=== PATIENT | male | born 1945 | race Caucasian/White ===

== ENCOUNTER → 2017-04-19 | Day surgery (SDC) | payer MEDICARE, OTHER ==
[~2017-04-19] MED LIST: ASPIRIN PO; CRESTOR PO; HYDROCODON-ACE1 EAC1; LOPRESSOR PO; MAGNESIUM400 MG PO; NORVASC PO; OXYGEN INH; PRILOSEC PO; SPIRIVA18 MCG INH; SYMBICORT INH; TOPROL XL PO
--- NOTE | ~2017-04-19 | OR ---
Unit #: [id number] #: [id number] Patient: POPEYE TIRADO [id number] [place], [place] [address] [id number] MR#: [id number] NAME: POPEYE TIRADO ROOM: Date of Procedure: 04/19/2017 Admission Date: 04/19/2017 Surgeon: Bijan Mulligan M.D. : 1945 Attending Physician: Bijan Mulligan M.D. Primary Care Physician: Vishnu Dominguez M.D. OPERATIVE REPORT PREOPERATIVE DIAGNOSES The patient has presented for colorectal cancer surveillance. He has personal history of colon polyps. In fact, last time he had more than 20 polyps removed during colonoscopy. In addition, his father has had colon cancer. PROCEDURES PERFORMED Colonoscopy and polypectomy. POSTOPERATIVE DIAGNOSES 1. A total of four polyps were found, two in the descending colon, one each in the sigmoid and ascending colon. These ranged in size from 5 mm to 1 cm each. The largest polyp being in the ascending colon. All were sessile and were removed using snare polypectomy. 2. Localized sigmoid and descending colon diverticulosis. 3. Rest of the examination up to cecum was normal. The quality of the prep was good. RECOMMENDATIONS 1. We will follow up the results of polyp histology. 2. Consider repeat examination of the colon in 5 years. SEDATION USED MAC. DESCRIPTION OF PROCEDURE Following detailed explanation of potential risks and complications of a colonoscopy, namely perforation, bleeding, and complication related to sedation, the patient was brought to GI lab and laid in the left lateral decubitus position. A digital rectal examination was performed, which was normal. Lubricated tip of the Olympus video colonoscope was inserted through the anus and advanced under direct vision. The scope was advanced past rectosigmoid into descending colon. Multiple small diverticula were noted in this area. The scope tip was then navigated all the way up to cecum with visualization of the ileocecal valve and the appendiceal orifice. Preparation was good with good visualization and photodocumentation was obtained. Successive segments of the colonic mucosa were examined upon withdrawal. A total of four polyps were found. The first one was in the ascending colon. This was about a centimeter in size and was removed using snare cautery polypectomy. There were two additional polyps in the distal descending colon. These were 5 mm and 6 mm each, both were removed using snare polypectomy. A third polyp was Unit #: [id number] #: [id number] Patient: POPEYE TIRADO found in the sigmoid colon, was about 7 mm and was also removed using snare polypectomy. All the polyps were retrieved and sent for histology. The patient also had sigmoid and descending colon diverticulosis; however, no internal hemorrhoids were noted at the anal verge. The scope was then withdrawn and the patient returned to the recovery area. He tolerated the procedure without any postprocedure complications. Dictated by... Day Dominguez/james TD: 04/19/2017 13:57 JOB #: [id number] OPERATIVE REPORT Page 1 of 1 X Bijan Mulligan MD X PROCEDURE OPERATIVE NOTE
== END | disposition home or self-care (01) ==
LOC: COPS 10:42
DX: Z12.11 Encounter for screening for malignant neoplasm of colon (principal); D12.5 Benign neoplasm of sigmoid colon; D12.2 Benign neoplasm of ascending colon; D12.3 Benign neoplasm of transverse colon; K57.30 Diverticulosis of large intestine without perforation or abscess without bleeding; K21.9 Gastro-esophageal reflux disease without esophagitis; J44.9 Chronic obstructive pulmonary disease, unspecified; F17.210 Nicotine dependence, cigarettes, uncomplicated; I25.2 Old myocardial infarction; I25.10 Atherosclerotic heart disease of native coronary artery without angina pectoris; J43.9 Emphysema, unspecified; Z86.010 Personal history of colon polyps; Z80.0 Family history of malignant neoplasm of digestive organs; Z79.82 Long term (current) use of aspirin; Z79.899 Other long term (current) drug therapy; Z79.51 Long term (current) use of inhaled steroids; Z95.1 Presence of aortocoronary bypass graft; Z98.890 Other specified postprocedural states
CPT/HCPCS: 88305; J2250